=== PATIENT | male | born 1930 | race Caucasian/White ===

== ENCOUNTER 2020-12-23 15:38 | Emergency (ER) | payer OTHER ==
[~2020-12-23] VITALS: Ht 175.3 cm; Wt 96.2 kg
[~2020-12-23 15:38] MED LIST: ACEDIPPM PO; ALBIPROI; ALBU.083IS IH; CLOBET30L TP; HYDACE5 PO; MUPI2TO TOP; OMEP10ER; OMEP20ER PO; PRAV20 PO; [UNRECOGNIZED DRUG - REMARK]
== END 2020-12-23 19:25 | disposition home or self-care (01) ==
LOC: ER 15:38
DX: K64.4 Residual hemorrhoidal skin tags (principal); Z91.018 Allergy to other foods; Z79.899 Other long term (current) drug therapy
CPT/HCPCS: 99282